=== PATIENT | female | born 1980 | race Caucasian/White ===

== ENCOUNTER 2018-12-27 07:24 | Emergency (ER) | payer SELFPAY ==
[2018-12-27] MEDS ORDERED: Dexamethasone IV* 4 MG/ML 1 ML (4 MG) IV SLOW PU ONE (07:50)
[2018-12-27] MEDS ORDERED: Morphine 4 MG/ML VIAL (1 ml) 4 MG/ML VIAL IV ONE (07:50)
[2018-12-27] MEDS ORDERED: Orphenadrine Citrate IV* 30 MG/ML 2 ML VIAL IV ONE (07:50)
[2018-12-27] MEDS ORDERED: Ketorolac INJ* 30 MG/ML 1 ML VIAL IV ONE (07:50)
[2018-12-27] MEDS ORDERED: Ketorolac INJ* 30 MG/ML 1 ML VIAL IV PUSH ONE (08:00)
--- NOTE | 2018-12-27 08:14 | ED ---
Back Pain - HPI Summary HPI Summary: This patient is a 38 year old F presenting to ED with a chief complaint of back pain since 12/22/18. Patient reports the pain came on suddenly in the middle of the night and has worsened since. The pain started in the low back but has since spread to the middle back. She denies a history of trauma or recent heavy lifting. She denies a history of back issues, and this is the first time she has had this type of back pain. She denies difficulty urinating and states the pain does not radiate to the legs. She has taken Tylenol and Advil for the pain , but it has not helped. Patient is on her menstrual cycle right now. She ambulated into the ED room. The patient rates the pain 10/10 in severity. Symptoms aggravated by nothing. Symptoms alleviated by nothing. - History of Current Complaint Chief Complaint: EDBackInjuryPain Stated Complaint: BACK INJURY PER PT Time Seen by Provider: 12/27/18 07:41 Hx Obtained From: Patient Hx Last Menstrual Period: 03/16/13 - pt had ectopic , not regular yet. Onset/Duration: Sudden Onset, Lasting Days - Since 12/22/18, Still Present, Worse Since Onset/Duration: Started Days Ago - 12/22/18, Still Present, Worse Since Timing: Constant, Lasting Days - 12/22/18 Back Pain Location: Is Discrete @ - Lower back, Radiates To - Middle back, but not legs Severity Initially: Moderate Severity Currently: Severe Pain Intensity: 10 Pain Scale Used: 0-10 Numeric Aggravating Symptom(s): Nothing Alleviating Symptom(s): Nothing Associated Signs And Symptoms: Negative: Bladder Incontinence - Allergies/Home Medications Allergies/Adverse Reactions: Allergies Allergy/AdvReac Type Severity Reaction Status Date / Time Penicillins Allergy Hallucinati Verified 12/27/18 07:29 ons Home Medications: Home Medications Acetaminophen TAB* [Tylenol TAB*] 1,300 mg PO Q4H PRN 12/27/18 [History Confirmed 12/27/18] Ibuprofen TAB* [Advil TAB*] 800 mg PO Q6H PRN 12/27/18 [History Confirmed ] Melatonin 50 mg PO BEDTIME 12/27/18 [History Confirmed 12/27/18] PMH/Surg Hx/FS Hx/Imm Hx Endocrine/Hematology History: Denies: Hx Diabetes Cardiovascular History: Denies: Hx Hypercholesterolemia, Hx Hypertension - Surgical History Surgery Procedure, Year, and Place: GLAND REMOVED FROM NECK. D&C Infectious Disease History: No Infectious Disease History: Denies: Traveled Outside the [place] in Last 30 Days - Family History Known Family History: Positive: Hypertension, Diabetes - Social History Alcohol Use: Occasionally Hx Substance Use: No Substance Use Type: Reports: None Hx Tobacco Use: Yes Smoking Status (MU): Heavy Every Day Tobacco Smoker Review of Systems Genitourinary: Negative - Difficulty urinating Musculoskeletal: Other - Back pain All Other Systems Reviewed And Are Negative: Yes Physical Exam - Summary Physical Exam Summary: VITAL SIGNS: Reviewed. GENERAL: Patient is a well-developed and nourished F who is lying comfortable in the stretcher. Patient is not in any acute respiratory distress. HEAD AND FACE: No signs of trauma. No ecchymosis, hematomas or skull depressions. No sinus tenderness. EYES: PERRLA, EOMI x 2, No injected conjunctiva, no nystagmus. EARS: Hearing grossly intact. Ear canals and tympanic membranes are within normal limits. MOUTH: Oropharynx within normal limits. NECK: Supple, trachea is midline, no adenopathy, no JVD, no carotid bruit, no c- spine tenderness, neck with full ROM. CHEST: Symmetric, no tenderness at palpation. LUNGS: Clear to auscultation bilaterally. No wheezing or crackles. CVS: Regular rate and rhythm, S1 and S2 present, no murmurs or gallops appreciated. ABDOMEN: Soft, non-tender. No signs of distention. No rebound, no guarding, and no masses palpated. Bowel sounds are normal. MUSCULOSKELETAL: paraspinal tenderness in the right lumbar region. Patient ambulated into the ED room. EXTREMITIES: FROM in all major joints, no edema, no cyanosis or clubbing. NEURO: Alert and oriented x 3. No acute neurological deficits. Speech is normal and follows commands. SKIN: Dry and warm. Triage Information Reviewed: Yes Vital Signs On Initial Exam: Initial Vitals Temp Pulse Resp BP Pulse Ox 97.8 F 100 14 162/92 100 12/27/18 07:26 12/27/18 07:26 12/27/18 07:26 12/27/18 07:26 12/27/18 07:26 Vital Signs Reviewed: Yes Diagnostics - Vital Signs Vital Signs Temp Pulse Resp BP Pulse Ox 12/27/18 07:26 97.8 F 100 14 162/92 100 - Laboratory Lab Statement: Any lab studies that have been ordered have been reviewed, and results considered in the medical decision making process. - Radiology L-spine XR Radiology Interpretation Completed By: Radiologist Summary of Radiographic Findings: NO EVIDENCE FOR FRACTURE OR SUBLUXATION. Dr. Moss has reviewed this radiology report. Re-Evaluation - Re-Evaluation First Eval Re-Evaluation Time: 09:01 Change: Improved Comment: Discussed results with patient. Patient will be discharged home with dx of back pain. Patient understands and agrees with this plan. Back Pain Course/Dx - Course Assessment/Plan: This patient is a 38 year old F presenting to ED with a chief complaint of back pain since 12/22/18. Patient reports the pain came on suddenly in the middle of the night and has worsened since. The pain started in the low back but has since spread to the middle back. She denies a history of trauma or recent heavy lifting. She denies a history of back issues, and this is the first time she has had this type of back pain. She denies difficulty urinating and states the pain does not radiate to the legs. She has taken Tylenol and Advil for the pain, but it has not helped. Patient is on her menstrual cycle right now. She ambulated into the ED room. The patient rates the pain 10/10 in severity. Symptoms aggravated by nothing. Symptoms alleviated by nothing. X- ray of the lumbar spine negative for an acute fracture dislocation. In the ED course the patient was given Decadron, morphine, Toradol and Norflex. After these medications the patient's symptoms have significantly improved. Patient reports that the pain is only 1 out of 10. The patient is able to ambulate without any deficit and has a good steady walk. Therefore the patient will be discharged home with follow-up with PCP. Patient is hemodynamically stable alert and oriented 3. - Diagnoses Provider Diagnoses: Back pain Discharge ED - Sign-Out/Discharge Documenting (check all that apply): Patient Departure - Discharge Patient Received Moderate/Deep Sedation with Procedure: No - Discharge Plan Condition: Stable Disposition: HOME Prescriptions: Methocarbamol TAB* [Robaxin 500 MG TAB*] 500 mg PO TID PRN #12 tab PRN Reason: Spasms - Back methylPREDNISolone [Medrol Dosepak 4 MG*] 0 mg PO .SEE DOMINIK INSTRUCTION #1 dominik Patient Education Materials: Back Pain (ED) Referrals: [facility] [Outside] - 3 Days Additional Instructions: FOLLOW UP WITH YOUR PRIMARY CARE PROVIDER WITHIN ONE WEEK. RETURN TO THE ED FOR ANY WORSENING OR NEW SYMPTOMS. - Billing Disposition and Condition Condition: STABLE Disposition: Home - Attestation Statements Document Initiated by Scribe: Yes Documenting Scribe: Luis Youngblood Provider For Whom Rosemarie is Documenting (Include Credential): Dilan Moss MD Scribe Attestation: IuLis, scribed for Dilan Moss MD on 12/27/18 at 1820. Scribe Documentation Reviewed: Yes Provider Attestation: The documentation as recorded by the Luis cottrell accurately reflects the service I personally performed and the decisions made by me, Dilan Moss MD Status of Scribe Document: Viewed
[2018-12-27 09:31] VITALS: BP 136/86
== END 2018-12-27 09:30 | disposition home or self-care (01) ==
LOC: ED 07:24
DX: M54.9 Dorsalgia, unspecified (principal); F17.200 Nicotine dependence, unspecified, uncomplicated; Z79.899 Other long term (current) drug therapy; Z88.0 Allergy status to penicillin
CPT/HCPCS: 72100; 96374; 96375; 96376; 99282; J1100; J1885; J2270; J2360

== ENCOUNTER 2019-03-21 09:28 | Observation (INO) | payer SELFPAY ==
[2019-03-21] MEDS ORDERED: NS 0.9% 1000 ML** 1,000 ML IV ONE (13:29)
[2019-03-21] MEDS ORDERED: Meclizine TAB* 12.5 MG PO ONE (13:30)
--- NOTE | 2019-03-21 13:48 | ED ---
Hypertension - HPI Summary HPI Summary: 38 year old female presents to the ED with a chief complaint of syncope and high blood pressure with her first syncopal episode at 0700 this morning. She was seen by Dr. Moss at 1336. This morning she was getting ready for work when she syncoped. She measured her blood pressure which was very high. Later at work she tried to stand up and syncoped again. She reports feeling extreme vertigo and chills starting this morning. Also reports blurry vision for the last 2 weeks. She said she is unable to ambulate because she feels "like she is on a rollercoaster". No PSHx. Patient smokes tobacco. - History of Current Complaint Chief Complaint: EDDizziness Stated Complaint: HIGH BLOOD PRESSURE/SYNCOPE PER PT FRIEND Time Seen by Provider: 03/21/19 13:28 Hx Obtained From: Patient Hx Last Menstrual Period: 03/16/13 - pt had ectopic , not regular yet. Onset/Duration: Started Hours Ago Timing: Intermittent, Lasting Minutes Aggravating Factor(s): Other: - syncope Associated Signs & Symptoms: Vision Changes - 2 weeks, Dizziness, Other: - syncope, difficulty ambulating - Allergies/Home Medications Allergies/Adverse Reactions: Allergies Allergy/AdvReac Type Severity Reaction Status Date / Time Penicillins Allergy Hallucinati Verified 03/21/19 09:34 ons Home Medications: Home Medications Acetaminophen TAB* [Tylenol TAB*] 650 mg PO Q6H PRN 03/21/19 [History Confirmed 03/21/19] Multivitamins/Minerals TAB* [Theragran/minerals TAB*] 1 tab PO DAILY 03/21/19 [ History Confirmed 03/21/19] PMH/Surg Hx/FS Hx/Imm Hx Endocrine/Hematology History: Denies: Hx Diabetes Cardiovascular History: Denies: Hx Hypercholesterolemia, Hx Hypertension - Surgical History Surgery Procedure, Year, and Place: GLAND REMOVED FROM NECK. D&C Infectious Disease History: No Infectious Disease History: Denies: Traveled Outside the [place] in Last 30 Days - Family History Known Family History: Positive: Hypertension, Diabetes - Social History Alcohol Use: Occasionally Hx Substance Use: No Substance Use Type: Reports: None Hx Tobacco Use: Yes Smoking Status (MU): Heavy Every Day Tobacco Smoker Review of Systems Positive: Chills Positive: Blurred Vision Positive: Other - high blood pressure Positive: Other - difficulty ambulating Neurological: Other - dizziness Positive: Syncope All Other Systems Reviewed And Are Negative: Yes Physical Exam - Summary Physical Exam Summary: VITAL SIGNS: Reviewed. GENERAL: Patient is a well-developed and nourished female who is lying comfortable in the stretcher.Patient is not in any acute respiratory distress. HEAD AND FACE: No signs of trauma. No ecchymosis, hematomas or skull depressions. No sinus tenderness. EYES: PERRLA, EOMI x 2, No injected conjunctiva. No photophobia. Horizontal nystagmus EARS: Hearing grossly intact. Ear canals and tympanic membranes are within normal limits. MOUTH: Oropharynx within normal limits. NECK: Supple, trachea is midline, no adenopathy, no JVD, no carotid bruit, no c- spine tenderness, neck with full ROM. No meningeal signs, no Kernig's or brudzinskis signs. CHEST: Symmetric, no tenderness at palpation. LUNGS: Clear to auscultation bilaterally. No wheezing or crackles. CVS: Regular rate and rhythm, S1 and S2 present, no murmurs or gallops appreciated. ABDOMEN: Soft, non-tender. No signs of distention. No rebound, no guarding, and no masses palpated. Bowel sounds are normal. EXTREMITIES: FROM in all major joints, no edema, no cyanosis or clubbing. NEURO: Alert and oriented x 3. No acute neurological deficits. Steady gait. Speech is normal and follows commands. NIH 0 SKIN: Dry and warm. GCS: 15 Triage Information Reviewed: Yes Vital Signs On Initial Exam: Initial Vitals Temp Pulse Resp BP Pulse Ox 97.7 F 89 14 128/94 100 03/21/19 09:31 03/21/19 09:31 03/21/19 09:31 03/21/19 09:31 03/21/19 09:31 Vital Signs Reviewed: Yes Procedures - Sedation Patient Received Moderate/Deep Sedation with Procedure: No Diagnostics - Vital Signs Vital Signs Temp Pulse Resp BP Pulse Ox 03/21/19 11:59 99.0 F 79 14 132/83 98 03/21/19 09:31 97.7 F 89 14 128/94 100 - Laboratory Result Diagrams: 03/22/19 05:13 03/22/19 05:13 Lab Statement: Any lab studies that have been ordered have been reviewed, and results considered in the medical decision making process. - Radiology CXR Radiology Interpretation Completed By: Radiologist Summary of Radiographic Findings: No active cardiopulmonary disease. An ED physician has reviewed this exam. - CT Brain CT CT Interpretation Completed By: Radiologist Summary of CT Findings: CT Brain: No acute intracranial abnormalities. An ED physician has reviewed this report. - EKG 1603 Cardiac Rate: NL - 81 bpm EKG Rhythm: Sinus Rhythm ST Segment: Normal Summary of EKG Findings: EKG at 1603 reveals normal sinus rhythm at [address] elevation. Normal [place]. An ED physician has reviewed and interpreted this EKG. Re-Evaluation - Re-Evaluation First Eval Re-Evaluation Time: 14:01 Comment: Talked on the phone to patient's mom. 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 She has been clean for several months but may have started using again. Patient is secretive about drug use. Hypertension Course/Dx - Course Assessment/Plan: 38 year old female presents to the ED with a chief complaint of syncope and high blood pressure with her first syncopal episode at 0700 this morning. She was seen by Dr. Moss at 1336. This morning she was getting ready for work when she syncopated. She measured her blood pressure which was very high. Later at work she tried to stand up and syncope again. She reports feeling extreme vertigo and chills starting this morning. Also reports blurry vision for the last 2 weeks. She said she is unable to ambulate because she feels "like she is on a rollercoaster". No PSHx. Patient smokes tobacco. In the ED course the patient was placed in a lunchroom monitor, IV access was obtained, IV fluids started. Blood work without any significant abnormality except for the dizziness is a well-developed 0.7, glucose 12, magnesium 1.8. Head CT impression: No acute intracranial pathology. I discussed this with Dr. Woods from neurology who came and assessed the patient. After his assessment he recommends for the patient to get an MRI of the brain and admission to the hospitalist services. I discuss my physical exam and test results with Dr. Carlson from the hospitalist services and he agrees to admit the patient to his services. The patient is hemodynamically stable alert and oriented x 3. - Diagnoses Provider Diagnoses: Syncope, Ataxia, Dizziness Discharge ED - Sign-Out/Discharge Documenting (check all that apply): Patient Departure - admit - Discharge Plan Condition: Stable Disposition: ADMITTED TO [facility] - Billing Disposition and Condition Condition: STABLE Disposition: Admitted to [facility] - Attestation Statements Document Initiated by Scribe: Yes Documenting Scribe: Bar Osuna Provider For Whom Scribe is Documenting (Include Credential): Dilan Moss MD Scribe Attestation: Bar Liang, scribed for Dilan Moss MD on 03/22/19 at 1018. Scribe Documentation Reviewed: Yes Provider Attestation: The documentation as recorded by the Bar cottrell accurately reflects the service I personally performed and the decisions made by Dilan cho MD Status of Scribe Document: Viewed
[2019-03-21 13:54] LABS: ABS Basophils 0.1 10^3/ul (0-0.2); ABS Eosinophils 0.1 10^3/ul (0-0.6); ABS Lymphocytes 4.3 10^3/ul (1.0-4.8); ABS Monocytes 0.6 10^3/ul (0-0.8); ABS Neutrophils 6.5 10^3/ul (1.5-7.7); Eosinophil % 1.1 %; Hematocrit 43 % (35-47); Hemoglobin 14.5 g/dL (12.0-16.0); Lymphocyte % 36.7 %; Mean Corpuscular HGB Conc 34 g/dL (31-36); Mean Corpuscular Hemoglobin 31 pg (27-31); Mean Corpuscular Volume 91 fL (80-97); Mean Platelet Volume 6.9 fL (7.4-10.4); Nucleated Red Blood Cells % 0.1; Platelet Count 340 10^3/uL (150-450); Red Cell Distribution Width 13 % (10-15); White Blood Count 11.7 10^3/uL (3.5-10.8)
[2019-03-21 14:32] LABS: ALT 7 U/L (7-52); AST 14 U/L (13-39); Albumin 4.4 g/dL (3.2-5.2); Albumin/Globulin Ratio 1.5 (1-3); Alkaline Phosphatase 54 U/L (34-104); Anion Gap 5 mmol/L (2-11); Blood Urea Nitrogen 6 mg/dL (6-24); C Reactive Protein 1.51 mg/L (<8.01); CO2 Carbon Dioxide 27 mmol/L (22-32); Chloride 105 mmol/L (101-111); Creatine Kinase 110 U/L (10-223); EGFR African American 119.8 (>60); Globulin 2.9 g/dL (2-4); Glucose 102 mg/dL (70-100); Magnesium 1.8 mg/dL (1.9-2.7); Potassium 3.5 mmol/L (3.5-5.0); Sodium 137 mmol/L (135-145); Total Protein 7.3 g/dL (6.4-8.9)
[2019-03-21 14:39] LABS: TSH (Thyroid Stimulating Horm) 0.72 mcIU/mL (0.34-5.60)
[2019-03-21 14:51] LABS: Alcohol < 10 mg/dL (<10)
[2019-03-21 15:31] LABS: Urine Appearance Clear; Urine Bilirubin Negative (Negative); Urine Blood 1+ (Negative); Urine Color Yellow; Urine Glucose Negative (Negative); Urine Ketones Trace (Negative); Urine Nitrite Negative (Negative); Urine Protein Negative (Negative); Urine Specific Gravity 1.012 (1.010-1.030); Urine Urobilinogen Negative (Negative)
[2019-03-21 15:43] LABS: Urine Bacteria Absent (Absent); Urine Red Blood Cell 2+(6-10/hpf) (Absent); Urine Squamous Epithelial Cell Present (Absent); Urine White Blood Cell 2+(11-20/hpf) (Absent)
[2019-03-21] MEDS ORDERED: Acetaminophen TAB* 325 MG PO ONE (16:40)
[2019-03-21] MEDS ORDERED: Acetaminophen TAB* 325 MG PO PRN (17:13)
[2019-03-21] MEDS ORDERED: Magnesium Sulfate 1 GM IV* 1 GM/100 ML BAG IV ONE (17:54)
[2019-03-21 18:19] LABS: HCG Pregnancy < 0.60 mIU/mL
[2019-03-21 18:36] LABS: Urine Benzodiazepine Screen Presumptive Positive (None Detect); Urine Opiates Screen None Detected (None Detect)
[2019-03-21] MEDS ORDERED: Nicotine* 4MG (FRUIT FLAVOR) GUM PO PRN (19:32)
[2019-03-21] MEDS ORDERED: Gadoteridol* (CONTRAST) 279.3 MG/ML 10 ML IV ONE (20:42)
--- NOTE | 2019-03-21 20:42 | HP ---
CC: [facility] * HISTORY AND PHYSICAL: DATE OF ADMISSION: 03/21/19 PRIMARY CARE PROVIDER: [facility] ATTENDING PHYSICIAN: Johanna Carlson MD * (dictated by ANDRY Mcfarlane ) CHIEF COMPLAINT: "I passed out at work." HISTORY OF PRESENT ILLNESS: Ms. Mendoza is a 38-year-old female with no past medical history, no primary care provider, who presented to the ER today after a syncopal episode. She notes that she woke up at 0400 and went to work at 0730. The patient notes that she felt hot and "the last thing I remember I woke up on the couch in the break room." She notes that she syncopized and lost consciousness and was down "not too long," but she is unsure of the length of time. She is unsure if she hit her, although she believes she did not and denies head pain. She notes that she did not eat breakfast this morning and that she never does; in fact she has only had apple sauce to eat today. Prior to her syncopal event she was standing. She did not have any recent exertion or change in position such as seated to standing. The patient also relates a 2 week history of intermittent diplopia and blurred vision with associated dizziness. She notes that it has become constant since her syncopal episode today. She denies any other neurological symptoms including denying dysphagia, dysarthria, weakness. She denies recent head injury or fall. She denies weakness. The patient denies urinary symptoms including dysuria, frequency, urgency, retention. In the ER, the patient received a full workup. Laboratory data revealed a mild leukocytosis. CMP was within normal limits. Magnesium was 1.8. Urinalysis revealed 2+ LE, negative nitrites, absent bacteria. Serum alcohol less than 10. Brain CT and chest x-ray were unremarkable. EKG showed rate of 92, regular rate and rhythm without ST changes. In the ER, the patient was given acetaminophen 650 mg p.o., meclizine 50 mg p.o. and 1 L of normal saline. Hospitalist team was asked to evaluate the patient for admission. PAST MEDICAL HISTORY: No significant past medical history. PAST SURGICAL HISTORY: Gland removal, neck; D and C. HOME MEDICATIONS: 1. Multivitamins/minerals 1 tab p.o. daily. 2. Acetaminophen 650 mg p.o. q.6 hours p.r.n. DRUG ALLERGIES: PENICILLIN. FAMILY HISTORY: Maternal grandfather with ID, prostate cancer. Maternal grandmother - ID, diabetes, breast cancer. Father - hypertension, ID. No family history of CVA. SOCIAL HISTORY: The patient smoked a half pack per day for approximately 20 years. She rarely uses alcohol. She works at [employer] in [place]. She is not . She has 2 children, who live with her mom. She lives with friends. In the event that she is unable to make her own medical decisions, she has appointed her mom, Caitlyn Membreno to be her surrogate decision makers. REVIEW OF SYSTEMS: A 14-point review of systems has been performed and all the pertinent positives and negatives are in the HPI. All other systems are negative. PHYSICAL EXAMINATION GENERAL: Ms. Mendoza is a well-developed, well-nourished, average-weight, young white female who is sitting up in bed. She appears to be in no acute distress. She has a flat affect. HEENT: PERRL. Extraocular movements appear to be intact, although the patient complains of dizziness with eye movements. Negative for nystagmus. Sclerae are anicteric. Hearing is grossly intact. Oral mucous membranes are moist. Pharynx is clear. Tongue is at midline. Palate elevates symmetrically. PULMONARY: Symmetrical chest expansion without use of accessory muscles. Clear to auscultation bilaterally without rhonchi, wheezes, rales. CARDIOVASCULAR: Regular rate and rhythm with S1, S2 present without murmurs, rubs, clicks, or gallops. There is no JVD. There is no peripheral edema. ABDOMEN: Flat. Bowel sounds in all quadrants. Soft, nontender to palpation. MUSCULOSKELETAL: Full range of motion without pain or deformity. NEURO: The patient is awake. She is alert and oriented x3. The patient was asked to raise eyebrows and she states "I am," but there is no eyebrow movement. Otherwise cranial nerves II through XII are grossly intact. Muscle strength is equal and 5/5 except hip flexion and ankle dorsiflexion are 4/4 and with decreased endurance. DIAGNOSTIC STUDIES/LAB DATA: WBC 11.7, magnesium 1.8, TSH 0.72, 2+ LE. Chest x-ray, impression: No active cardiopulmonary disease. CT brain without, impression: No acute intracranial abnormality. ASSESSMENT AND PLAN: Ms. Mendoza is a 38-year-old female with no significant past medical history, who presented to the ER today with complaints of syncope x1 and diplopia, blurred vision, dizziness x 2 weeks. The patient will be admitted for: 1. Diplopia, dizziness. The patient complains of these symptoms for approximately 2 weeks. They had been intermittent until her syncopal episode today and are now constant. She has been given meclizine in the ER with no change in symptoms. Neurology has been consulted and recommends MRI with and without contrast of the brain, neck. She will have neuro checks q.4 hours. Neuro will continue to follow. The patient will be admitted on telemetry. 2. Syncope. The patient had an apparent syncopal episode with loss of consciousness. CT of the head was negative. The patient will be admitted on telemetry. A transthoracic echocardiogram has been ordered. Hypoglycemia is in the differential, as she reportedly had not eaten anything prior to the event. 3. Tobacco abuse. Nicotine patch 21 mg. 4. DVT prophylaxis. SCDs. 5. Code status. Full code. TIME SPENT: Approximately 60 minutes were spent on this admission, greater than half that time was spent [id number] with the patient obtaining history, performing physical, and reviewing the plan of care. This case has been reviewed with my attending, Dr. Carlson, who is in agreement with the plan of care. ANDRY BERG [id number]/[facility] #: [id number] CLIFF
[2019-03-21] MEDS ORDERED: Nicotine Patch Removal NOTE PATCH OFF SCH (21:00)
[2019-03-21 21:32] LABS: Urine Buprenorphine Screen None Detected (None Detect); Urine Hydrocodone Screen None Detected (None Detect)
[2019-03-22] MEDS ORDERED: Melatonin 3 MG TAB PO SCH
[2019-03-22 05:47] LABS: ABS Basophils 0.1 10^3/ul (0-0.2); ABS Eosinophils 0.2 10^3/ul (0-0.6); ABS Lymphocytes 3.3 10^3/ul (1.0-4.8); ABS Monocytes 0.6 10^3/ul (0-0.8); Hematocrit 37 % (35-47); Lymphocyte % 36.3 %; Mean Corpuscular HGB Conc 35 g/dL (31-36); Mean Corpuscular Hemoglobin 31 pg (27-31); Mean Corpuscular Volume 89 fL (80-97); Platelet Count 290 10^3/uL (150-450); Red Blood Count 4.18 10^6 /uL (3.70-4.87); Red Cell Distribution Width 13 % (10-15); White Blood Count 9.2 10^3/uL (3.5-10.8)
[2019-03-22 06:03] LABS: BUN/Creatinine Ratio 9.5 (8-20); Calcium 7.9 mg/dL (8.6-10.3); EGFR African American 128.7 (>60); EGFR Non-African American 106.3 (>60); Potassium 3.9 mmol/L (3.5-5.0)
[2019-03-22] MEDS ORDERED: Nicotine PATCH 21 MG/24 HR* PATCH TRANSDERM SCH (08:00)
[2019-03-22 08:28] VITALS: BP 122/77
--- NOTE | 2019-03-22 09:40 | ECHO ---
*[facility]* [place] [address] Fax #: [phone] Transthoracic Echocardiogram Patient: Erin Mendoza : 1980 Study Date: 03/22/2019 Age: 38 Gender: F HR: 74 bpm Height: 66 in /167.6 cm BSA: 1.72 m^2 Weight: 139.7 lb /63.5 kg BMI: 22.6 kg/m^2 *Home Care Giver: * Debbie Arroyo [facility] *Referring Physician: * Sharifa RaineyReading Physician: * Emmanuel Finney MD Indications: Syncope. History: Risk factors: Current tobacco use. Conclusions Summary: - Left ventricle: Systolic function is normal. The estimated ejection fraction is 60-65%. Wall motion is normal; there are no regional wall motion abnormalities. - Mitral valve: There is trace regurgitation. - No previous echocardiogram available. Study data: Transthoracic echocardiogram. Procedure: Transthoracic echocardiography was performed. Image quality was good. Complete 2D, spectral Doppler, and color flow Doppler. Location: Bedside. Patient status: Inpatient. Patient room number: 434. Rhythm: Normal sinus rhythm. Findings Left ventricle: The cavity size is normal. Wall thickness is normal. Systolic function is normal. The estimated ejection fraction is 60-65%. Wall motion is normal; there are no regional wall motion abnormalities. Left ventricular diastolic function parameters are normal. Right ventricle: The cavity size is normal. Wall thickness is mildly increased. Systolic function is normal. Left atrium: The atrium is at the upper limits of normal in size. Right atrium: The atrium is normal in size. Mitral valve: The leaflets are mildly thickened. There is no evidence of stenosis. There is trace regurgitation. Aortic valve: The valve is trileaflet. The leaflets are normal thickness. There is no evidence of stenosis. There is no significant regurgitation. Tricuspid valve: The leaflets are normal thickness. There is no evidence of stenosis. There is physiologic regurgitation. Pulmonic valve: The leaflets are normal thickness. There is no evidence of stenosis. There is trace regurgitation. Aorta: Aortic root: The aortic root is appears normal. Ascending aorta: The ascending aorta is appears normal. Aortic arch: The aortic arch is appears normal. Pericardium: There is no significant pericardial effusion. Pulmonary arteries: The main pulmonary artery is normal-sized. Systolic pressure can not be accurately estimated. Systemic veins: Inferior vena cava: The vessel is normal in size. There is (>= 50%) respiratory change in the IVC dimension. Measurements Left ventricle Value Ref Aortic valve Value Ref INES, LAX 4.8 cm 3.8 - 5.2 Margarita diam, ED 2.3 cm ---- ESD, LAX 3.2 cm 2.2 - 3.5 Peak v, S 1.18 m/sec ---- FS, LAX 34 % 27 - 45 VTI, S 24.6 cm ---- PW, ED, LAX 0.9 cm 0.6 - 0.9 Mean grad, S 3.0 mm Hg ---- FS 34 % 27 - 45 Peak grad, S 6.0 mm Hg ---- PW, ED 0.9 cm 0.6 - 0.9 LVOT/AV, VTI ratio 0.69 ---- E', lat margarita, TDI 11.5 cm/sec >=10.0 E/e', lat margarita, 6 Mitral valve Value Ref TDI Peak E 0.73 m/sec ---- E', med margarita, TDI 11.5 cm/sec >=7.0 Peak A 0.46 m/sec -- -- E/e', med margarita, 6 Decel time 176 ms ---- TDI Peak grad, D 2.1 mm Hg ---- E', avg, TDI 11.5 cm/sec Peak E/A ratio 1.6 ---- E/e', avg, TDI 6 <=14 Pulmonic valve Value Ref LVOT Value Ref Peak v, S 0.9 m/sec ---- Peak jeffrey, S 0.91 m/sec Peak grad, S 3.0 mm Hg ---- VTI, S 17.0 cm Mean grad, S 2 mm Hg Aortic root Value Ref Root diam 3.1 cm <3.4 Ventricular septum Value Ref IVS, ED 0.9 cm 0.6 - 0.9 Ascending aorta Value Ref AAo AP diam, S 2.9 cm ---- Right ventricle Value Ref AW thickness, ED (H) 0.8 cm 0.1 - 0.5 Aortic arch Value Ref INES, LAX 2.5 cm Arch diam 1.7 cm ---- INES minor ax, A4C 2.9 cm 1.9 - 3.5 mid Decending aorta Value Ref Ирина peak jeffrey 0.87 m/sec ---- Left atrium Value Ref AP dim, ES 3.50 cm 2.70 - Inferior vena cava Value Ref 3.80 Diam 1.9 cm ---- ML dim, A4C 4.5 cm SI dim, A4C 4.8 cm Vol/bsa, ES, 1-p 33 ml/m^2 11 - 40 A4C Vol/bsa, ES, A/L 34 ml/m^2 16 - 34 Right atrium Value Ref SI dim, ES 4.8 cm 3.4 - 5.3 ML dim, ES, A4C 4.0 cm 2.6 - 4.4 Estimated RAP 3 mm Hg Legend: (L) and (H) braulio values outside specified reference range. Prepared and electronically signed by Emmanuel Finney MD 03/22/2019 09:40
--- NOTE | 2019-03-22 11:14 | CONS ---
NEUROLOGY CONSULTATION REPORT: DATE OF CONSULT: 03/21/19 Please note that this is a late entry. CONSULTING PROVIDER: Dr. Moss. REASON FOR CONSULT: Dizziness. CHIEF COMPLAINT: Dizziness and seeing double. HISTORY OF PRESENT ILLNESS: Ms. Erin Mendoza is a 38-year-old female who is fairly healthy who is not on any medications who has been having trouble with dizziness and double vision for the last 2 weeks. She stated that she cannot see well. She sees 3 door handles. She feels like she is sometimes drunk when walking. The symptoms are intermittent but for the last 2 weeks, she has had constant symptoms. She has had symptoms for a total of 4 to 5 weeks. She has been holding off and not coming to seek medical care until her insurance gets approved. She denied any headaches, but has this pressure pain behind her ears. She denied any tinnitus or hearing loss. She denied any focal weakness or paraesthesias. She thinks that she passed out yesterday when she was at work. She felt hot, she had palpitations, and then was noted to be on the floor. That is when her commercial property manager called for EMS to bring her in. The patient stated that she does not usually drink water, likes her coffee in the morning, and goes to work early in the morning without breakfast. She has a poor appetite. PAST MEDICAL HISTORY: Anxiety on Xanax PAST SURGICAL HISTORY: Gland excision. MEDICATIONS: Xanax . ALLERGIES: PENICILLIN. FAMILY HISTORY: Mother of cancer but her mother had diabetes. She does not know her father. SOCIAL HISTORY: The patient works at [employer]. She smokes 3/4 of a pack a day for 20 years. She denied alcohol use. She has 2 children. She lives with her friend. REVIEW OF SYSTEMS: A 14-point review of system was obtained and otherwise negative except for what was mentioned in the HPI. PHYSICAL EXAM: Vitals: Temperature of 97.7, pulse of 89, respiratory rate of 14, oxygen saturation of 100, blood pressure of 128/94. Orthostatic vitals were checked at bedside and were negative. Her systolic blood pressure actually increased from 139 to 150 from supine to standing. Her heart rate only increased by 8 from supine to standing. General: Well-nourished, well- developed female in no acute distress. Head: Atraumatic normocephalic without any obvious abnormality. Negative sign. Eyes: Conjunctivae/corneas are clear. Neck is supple and symmetric with no carotid bruit. Visual acuity 20/40 on the right 20/40 on the left. Funduscopic examination did not show any evidence of disc blurriness. She had fairly sharp disc margins bilaterally. Chest: Clear to auscultation bilaterally with no wheezing or rhonchi. Cardiovascular: Regular rate and rhythm with normal S1, S2. Extremities: Normal range of motion with no cyanosis or edema. Skin: No skin lesions or lacerations. Psych: Slightly anxious with normal affect and mood. Easy to establish rapport. Neurological Examination: Mental status: Awake, alert; oriented to person, place, time, and general circumstances. Speech and language including expression, comprehension and fluency were assessed and found to be normal. Cranial Nerves: Pupils equal, round, and reactive to light. Extraocular muscles are intact. There is no loss of sensation in her face, no facial asymmetry, tongue is symmetric and midline with no atrophy or fasciculation. Motor Examination: 5/5 strength in upper and lower extremities bilaterally. Sensation is intact throughout. Reflexes: She has hyperreflexia mostly to the biceps bilaterally and knee reflex bilaterally rated as 3+. Otherwise, triceps brachioradialis and ankles are 2+ bilaterally. Downgoing plantar responses. She has a positive Castro on the left side. Coordination: Normal [id number], hpsd-fp-[id number] testing. Gait: Normal stance and gait. No ataxia. LABS, IMAGING, AND OTHER DIAGNOSTIC TESTING: WBC of 9.2, hemoglobin of 13, hematocrit of 37, platelet count of 290. Sodium of 136, potassium is 3.9, BUN of 6, creatinine of 0.63. TSH is 0.72. C-reactive protein 1.51. Urinalysis shows 2+ wbc's and leukocyte esterase. Urine tox screen is positive for benzodiazepine. ASSESSMENT AND RECOMMENDATION: Mrs. Erin Mendoza is a 38-year-old female who is fairly healthy and presented with dizziness and intermittent double vision. The patient also had an episode of syncope. 1. Dizziness, double vision and episode of syncope. The etiology is unclear. The patient has many symptoms that are suggestive of possible anxiety provoking , however, syncope episode may have been due to underlying vasovagal event. She does not have any lateralizing neurological deficits that would suggest stroke or multiple sclerosis. However, she is within the age group of having multiple sclerosis. She was hyperreflexic on examination but it is symmetric and that could be seen in the setting with anxiety (physiologic hyperreflexia). The patient denied any recent stressors or life-changing events. She has seen an guard lieutenant a few weeks ago and her examination was reported to be normal. I don't have actual records. She has constellation of symptoms that are not localizable to a single pathology, but she should be worked up for stroke, multiple sclerosis, and cervical spondylosis with myelopathy. Furthermore a metabolic disturbance like vitamin B12 deficiency should also be considered. The patient will be admitted under observation for further evaluation of her new multiple neurological complaint and syncope. I will continue to follow. [id number]/[facility] #: [id number] CLIFF
[2019-03-22] MEDS ORDERED: Meclizine TAB* 12.5 MG PO PRN (11:21)
[2019-03-22] MEDS ORDERED: Cyanocobalamin INJ * 1,000 MCG/ML VIAL 1 ML VIAL IM ONE (13:30)
--- NOTE | 2019-03-22 14:46 | PN ---
Subjective Date of Service: 03/22/19 Length of Stay: 1 Days Neurology is following for the patient's episodes of dizziness. Interval History: She still feels foggy, dizzy, and has spinning sensation when getting up or walking. The spinning sensation lasts for seconds and resolves with head positioning. She denied any focal weakness or paresthesias. She still has headaches, mild, 4 /10, pressure like behind her ears, and associated with photophobia and nausea. Her mother is at bedside. The patient has a prescription for benzodiazepine (Xanax) for which she takes as needed. Labs, imaging, and other diagnostic imaging: MRI brain and cervical spine with and without contrast: no acute intracranial or intraspinal abnormalities. Vitamin B12: 140's. Urine toxicology screen: positive for benzodiazepine. Review of Systems: Denied CP, SOB, or palpitations. Objective Vital Signs 03/21/19 03/21/19 03/21/19 19:05 19:30 21:14 Temperature 99.4 F 97.8 F Pulse Rate 86 80 Respiratory 16 18 18 Rate Blood Pressure 127/82 132/67 (mmHg) O2 Sat by Pulse 98 99 Oximetry 03/21/19 03/22/19 03/22/19 23:15 01:00 03:15 Temperature 97.3 F 97.5 F Pulse Rate 84 78 Respiratory 14 18 14 Rate Blood Pressure 108/66 107/61 (mmHg) O2 Sat by Pulse 98 97 Oximetry 03/22/19 03/22/19 03/22/19 05:00 07:15 08:00 Temperature 97.3 F Pulse Rate 88 79 Respiratory 20 20 Rate Blood Pressure 122/77 (mmHg) O2 Sat by Pulse 97 Oximetry Intake and Output Last 24 Hours 03/20/19 03/21/19 03/22/19 03/23/19 06:59 06:59 06:59 06:59 Intake Total 790 Output Total 0 Balance 790 Weight 140 lb Intake: IV Fluids 310 Magnesium 105 NS (0.9%) 100 Oral 480 Output: Urine 0 Oxygen Devices in Use Now: None Neurology Exam: General: Well nourished, well developed, and in no acute distress HEENT: Normocephelic/atraumatic, sclera anicteric, mucous membranes moist Extremities: No clubbing, cyanosis, or edema Greg-Hallpike maneuver is negative bilaterally. Head impulse test was normal bilaterally. No skew deviation to cover test. Neurological Findings: Awake, alert, and oriented to person, place, and time. Speech: fluent without dysarthria, repetition intact Cranial Nerve: PERRL, EOM intact, VFF, no nystagmus, face symmetric bilaterally , facial sensation intact, hearing intact to finger rub bilaterally, palate elevates symmetrically, tongue midline, SCM and Trapezius s/s. Motor: s/s throughout, proximal and distal extremities x4 tone/bulk normal Sensation: intact to LT/PP bilaterally upper and lower extremities Deep Tendon Reflex: 3+ symmetric in the upper/lower extremities, Babinski - down going Finger to nose, rapid alternating movements intact without tremor, no dysdiadochokinesia Gait: intact with good arm swing and stride Result Diagrams: 03/22/19 05:13 03/22/19 05:13 Assessment/Plan Erin Mendoza is a 38-year-old female with a history of anxiety disorder who presented to [facility] on 03/21/2019 with symptoms of dizziness, intermittent positional related vertigo, headaches, and intermittent double vision. The patient's examination is notable for hyperreflexia and positive Jeanmarie's sign on the right (on presentation). Imaging studies showed no evidence of any demyelinating lesions or stroke. The patient's vitamin B12 level was low in the 140's. 1. Paroxysmal, positional induced vertigo associated with headache and double vision. I suspect this is related to vestibular migraine. She had a normal Greg -Hallpike and HiNT test on examination. She had normal MRI of the brain ruling out demyelinating disease or stroke. 2. Vitamin B12 deficiency- could be attributing to some of her symptoms. Recommendations: - Magnesium oxide 400 mg and Riboflavin 100 mg by mouth daily. - We agreed not to initiate any aggressive treatment for her headaches until B12 is repleted and maybe this will improve most of her symptoms. - Cyanocobalamin 1,000 mcg IM x 1 now and then cyanocobalamin 1-2000 mcg daily. - Follow-up with neurology in 6 weeks.
--- NOTE | 2019-03-22 22:44 | DS ---
DISCHARGE SUMMARY: DATE OF ADMISSION: 03/21/19 DATE OF DISCHARGE: 03/22/19 PRIMARY CARE PROVIDER: None. ATTENDING PHYSICIAN: Dr. Daria Rajan.* (DICTATED BY EDGAR MILLS NP) PRIMARY DIAGNOSES: 1. Syncope of unclear etiology. 2. Vertigo. SECONDARY DIAGNOSIS: None. STUDIES DONE WHILE IN THE HOSPITAL: 1. Chest x-ray on 03/21/19 reads as no active cardiopulmonary EKG. 2. EKG on 03/21/19 shows normal sinus rhythm, significant artifact is noted and right and left arm electrodes were reversed. 3. Brain CT on 03/21/19 reads as no acute intracranial abnormality. 4. Brain MRI on 03/21/19 reads as no acute intracranial abnormality. 5. Cervical spine MRI on 03/21/19 reads as no abnormal cord signal or other acute abnormality. Widely patent central canal. 6. Transthoracic echocardiogram on 03/22/19 reads as the left ventricular systolic function is normal. The estimated ejection fraction is 60% to 65%. Wall motion is normal and there are no regional wall motion abnormalities. There is trace MR. No previous echocardiogram for comparison. HISTORY OF PRESENT ILLNESS AND HOSPITAL COURSE: Ms. Mendoza is a 38-year-old female with no significant past medical history, who presented to the emergency room on 03/21/19 with complaints of syncope. Please see the history and physical by ANDRY Mcfarlane for complete summary of the events leading up to this hospitalization. In short, the patient was at work. She reported feeling hot and dizzy and then remembers waking up on the couch at work. She noted that she had not had anything to eat that morning. She additionally endorsed 2 weeks of intermittent diplopia and dizziness. In the emergency room , the patient was noted to have mild leukocytosis. Labs were otherwise unremarkable and vital signs were stable. She was admitted by the hospitalist service for further evaluation. Neurology was consulted and they recommended MRI of the brain and neck which were completed with results noted above. She was monitored on telemetry without any significant abnormalities overnight. She additionally had a transthoracic echocardiogram this morning. The patient was seen by Dr. Chuck ryan who suspected that this was a positional-induced vertigo with associated headache and diplopia secondary to vestibular migraine. She did not have a normal Robinson-Hallpike test. Vitamin B12 was noted to be slightly low which could have contributed to her symptoms. He advised that the patient was stable for discharge with appropriate outpatient followup. Today, the patient offers no complaints. She is anxious to return home. She is alert and oriented x4 and has no focal neurological deficits. Physical exam is otherwise benign. Ms. Mendoza is stable for discharge. Most recent vitals are as follows: Temp 97.3 , heart rate 79, respiratory rate 20, oxygen saturation 97% on room air, and blood pressure 122/77. DISCHARGE MEDICATIONS: New Medications: 1. Vitamin B12 of 1000 mcg p.o. daily. 2. Magnesium oxide 400 mg p.o. daily. 3. Meclizine 25 mg p.o. q.8 hours p.r.n. dizziness. Continued Medications: 1. Acetaminophen 650 mg p.o. q.6 hours p.r.n. fever or pain. 2. Multivitamin 1 tab p.o. daily. DISCHARGE PLAN: Discharged home. Activity will be as tolerated. Diet will be regular as tolerated. Medications are noted above. The patient should take a daily magnesium and B12 supplement due to mild deficiencies noted while here in the hospital. She can additionally take meclizine for any recurrent dizziness. She can otherwise resume her usual medications. She will need to follow up with Neurology and the office will call to schedule an appointment with her in the next few weeks. She does not have a primary care provider and it has been recommended that she follow up with [facility]. She should return to the emergency room or the nearest hospital for any worsening of symptoms, shortness of breath, lightheadedness, dizziness, chest discomfort, high fever, chills, night sweats, loss of consciousness, or any other worrisome signs or symptoms. DISCHARGE CONDITION: Stable. DISCHARGE DISPOSITION: Home. This is a summarized report of a complex medical history and hospital stay. For further details, please see entire medical record. TIME SPENT: Approximately 40 minutes was spent on this discharge. EDGAR MILLS NP [id number]/[facility] #: [id number] CLIFF
[2019-03-23] MEDS ORDERED: Magnesium Oxide TAB* 400 MG PO SCH (09:00)
[2019-03-23] MEDS ORDERED: Cyanocobalamin TAB* 500 MCG PO SCH (09:00)
== END 2019-03-22 13:46 | disposition home or self-care (01) ==
LOC: ED 09:28 → MEDTELE 17:13
PROVIDERS: ADMIT Internal Medicine; ATTEND Internal Medicine
DX: R55 Syncope and collapse (principal); R42 Dizziness and giddiness; Z79.899 Other long term (current) drug therapy; H53.8 Other visual disturbances; F17.210 Nicotine dependence, cigarettes, uncomplicated; R03.0 Elevated blood-pressure reading, without diagnosis of hypertension; F41.9 Anxiety disorder, unspecified; E53.8 Deficiency of other specified B group vitamins
CPT/HCPCS: 36415; 70450; 70553; 71046; 72156; 80048; 80053; 80307; 80320; 81003; 81015; 82550; 82607; 83605; 83735; 83880; 84443; 84484; 84702; 85025; 86140; 86618; 87086; 93005; 93306; 96361; 96365; 96366; 96372; 99283; A9270-GY; A9579; G0378; G0480; J3420; J3475

== ENCOUNTER 2019-04-09 12:23 | Emergency (ER) | payer SELFPAY ==
--- NOTE | 2019-04-09 13:18 | ED ---
Dizziness - HPI Summary HPI Summary: This pt is a 39 y/o [facility]. She reports on 03/21/19 pt was admitted to [facility] for syncope and dizziness. Pt had a neurology consult and was discharged home on 03/22/19 on new medications. Pt notes today while at work she began to feel dizzy, with heart racing palpitations, and head pressure on the back of her head. She states she almost fell over at work today. Pt reports she has been taking her medications as prescribed, and last took Meclizine 2 hours ago at around 11:00 today with no relief of her dizziness. She notes her eyes are "messed up" and still has double vision. In the room pt reports photophobia and is extremely dizzy. Pt has a follow up appointment with neurology on 04/13/19. - History Of Current Complaint Chief Complaint: EDGeneral Stated Complaint: NEAR SYNCOPE Time Seen by Provider: 04/09/19 12:55 Hx Obtained From: Patient Onset/Duration: Still Present Timing: Constant Severity Currently: Moderate Character: Dizzy Aggravating Factor(s): Nothing Alleviating Factor(s): Nothing Associated Signs And Symptoms: Positive: Palpitations, Visual Changes, Other: - POSITIVE: photophobia. Negative: Fever - Allergies/Home Medications Allergies/Adverse Reactions: Allergies Allergy/AdvReac Type Severity Reaction Status Date / Time Penicillins Allergy Hallucinati Verified 04/09/19 12:28 ons Home Medications: Home Medications Melatonin/Pyridoxine HCl (B6) [Melatonin 3 mg Tablet] 3 each PO BEDTIME [History Confirmed 04/09/19] PMH/Surg Hx/FS Hx/Imm Hx Endocrine/Hematology History: Denies: Hx Diabetes Cardiovascular History: Denies: Hx Hypercholesterolemia, Hx Hypertension, Hx Pacemaker/ICD Sensory History: Denies: Hx Contacts or Glasses, Hx Hearing Aid Opthamlomology History: Denies: Hx Contacts or Glasses Psychiatric History: Denies: Hx Panic Disorder - Surgical History Surgical History: Yes Surgery Procedure, Year, and Place: GLAND REMOVED FROM NECK. D&C Infectious Disease History: No Infectious Disease History: Denies: Traveled Outside the [place] in Last 30 Days - Family History Known Family History: Positive: Hypertension, Diabetes - Social History Alcohol Use: Occasionally Hx Substance Use: No Substance Use Type: Reports: None Hx Tobacco Use: Yes Smoking Status (MU): Heavy Every Day Tobacco Smoker Type: Cigarettes Have You Smoked in the Last Year: Yes Review of Systems Negative: Fever Positive: Photophobia, Diplopia Positive: Palpitations Neurological: Other - POSITIVE: dizziness Positive: Headache All Other Systems Reviewed And Are Negative: Yes Physical Exam - Summary Physical Exam Summary: Appearance: The patient is well-nourished in no acute distress and in no acute pain. Skin: The skin is warm and dry and skin color reflects adequate perfusion. HEENT: The head is normocephalic and atraumatic. The pupils are equal and reactive. The conjunctivae are clear and without drainage. Nares are patent and without drainage. Mouth reveals moist mucous membranes and the throat is without erythema and exudate. The external ears are intact. The ear canals are patent and without drainage. The tympanic membranes are intact. Neck: the neck is supple with full range of motion and non-tender. There are no carotid bruits. There is no neck vein distension. Respiratory: Chest is non-tender. Lungs are clear to auscultation and breath sounds are symmetrical and equal. Cardiovascular: Heart is regular rate and rhythm. There is no murmur or rub auscultated. There is no peripheral edema and pulses are symmetrical and equal. Abdomen: The abdomen is soft and non-tender. There are normal bowel sounds heard in all four quadrants and there is no organomegaly palpated. Musculoskeletal: There is no back tenderness noted. Extremities are non-tender with full range of motion. There is good capillary refill. There is no peripheral edema or calf tenderness elicited. Neurological: Patient is alert and oriented to person, place and time. The patient has symmetrical motor strength in all four extremities. Cranial nerves are grossly intact. Deep tendon reflexes are symmetrical and equal in all four extremities. Psychiatric: The patient has an appropriate affect and does not exhibit any anxiety or depression. Triage Information Reviewed: Yes Vital Signs On Initial Exam: Initial Vitals Temp Pulse Resp BP Pulse Ox 98.7 F 104 18 138/98 100 04/09/19 12:24 04/09/19 12:24 04/09/19 12:24 04/09/19 12:24 04/09/19 12:24 Vital Signs Reviewed: Yes Procedures - Sedation Patient Received Moderate/Deep Sedation with Procedure: No Diagnostics - Vital Signs Vital Signs Temp Pulse Resp BP Pulse Ox 04/09/19 12:24 98.7 F 104 18 138/98 100 - Laboratory Lab Statement: Any lab studies that have been ordered have been reviewed, and results considered in the medical decision making process. Re-Evaluation - Re-Evaluation First Eval Re-Evaluation Time: 15:30 Comment: Reviewed Dr. Padilla's recommendations with pt. Dizzy Course/Dx - Course Course Of Treatment: After I evaluated Ms. Mendoza and prior to doing any tests, I spoke with Dr. Padilla and reviewed the situation because she had just had a recent admission very thorough workup for this same problem. He recommended giving her Valium and if she improved having her follow up closely with outpatient neurology. She did improve significantly and was discharged with a short-term prescription for Valium and follow-up on 14 April - Diagnoses Provider Diagnoses: Vertigo - Provider Notifications Discussed Care Of Patient With: Bryce Padilla Time Discussed With Above Provider: 13:31 Instructed by Provider To: Other - Discussed pt's case with Dr. Padilla, neurologist, who recommends giving pt a little Valium and following up. Discharge ED - Sign-Out/Discharge Documenting (check all that apply): Patient Departure - Discharge home - Discharge Plan Condition: Stable Disposition: HOME Prescriptions: Diazepam TAB(*) [Valium TAB(*)] 5 mg PO TID PRN #[id number] tab MDD 3 PRN Reason: Dizziness Patient Education Materials: Vertigo (ED) Referrals: [facility] [Outside] Bryce Padilla MD [Medical Doctor] - Additional Instructions: Keep your appointment with Dr. Padilla, neurologist, on April 13, 2019. RETURN TO THE ED FOR ANY WORSENING OR NEW SYMPTOMS. - Billing Disposition and Condition Condition: STABLE Disposition: Home - Attestation Statements Document Initiated by Donatoibe: Yes Documenting Scribe: Yessi Avendano Provider For Whom Rosemarie is Documenting (Include Credential): Nick Braswell MD Scribe Attestation: Yessi Liang, shaniquaed for Nick Braswell MD on 04/09/19 at 1700. Scribe Documentation Reviewed: Yes Provider Attestation: The documentation as recorded by the Yessi cottrell accurately reflects the service I personally performed and the decisions made by me, Nick Braswell MD Status of Scribe Document: Viewed
[2019-04-09] MEDS ORDERED: Diazepam TAB(*) 5 MG PO ONE (13:39)
[2019-04-09 15:49] VITALS: BP 129/85
== END 2019-04-09 15:49 | disposition home or self-care (01) ==
LOC: ED 12:23
DX: R42 Dizziness and giddiness (principal); F17.210 Nicotine dependence, cigarettes, uncomplicated; Z79.899 Other long term (current) drug therapy; Z88.0 Allergy status to penicillin
CPT/HCPCS: 99283; A9270-GY